=== PATIENT | male | born 1965 | race Two or more races ===

== ENCOUNTER 2024-09-07 09:41 | Emergency (ER) | payer MEDICAID ==
[~2024-09-07] VITALS: Ht 165.1 cm; Wt 73.0 kg
[2024-09-07 09:49] VITALS: O2SAT 99
[2024-09-07 09:51] VITALS: BP 141/7; PULSE 83; RESP 14; TEMP 36.7; O2SAT 99
[2024-09-07 10:24] LABS: BASOPHILS % 0.5 % (0.0-2.0); EOSINOPHILS % 2.2 % (0.0-5.0); HEMATOCRIT. 42.5 % (42.0-52.0); HEMOGLOBIN. 14.1 g/dL (14.0-18.0); LYMPHOCYTES % 23.1 % (20.0-50.0); MEAN CORPUSCULAR HEMOGLOBIN 29.4 pg (28.0-32.0); MEAN CORPUSCULAR HGB CONC 33.1 g/dL (31.0-37.0); MONOCYTES % 7.4 % (2.0-8.0); NEUTROPHILS % 66.8 % (40.0-76.0); PLATELET 200 x1000/uL (130-400); RED BLOOD CELL COUNT 4.78 mill/uL (4.7-6.1); RED CELL DISTRIBUTION WIDTH 13.3 % (11.6-14.6); WHITE BLOOD COUNT 7.2 x1000/uL (4.5-11.0)
[2024-09-07 10:31] LABS: PROTHROMBIN TIME 10.7 sec (9.6-11.0)
[2024-09-07 10:45] LABS: CHLORIDE 105 mEq/L (98-107); POTASSIUM 3.7 mEq/L (3.5-5.1); SODIUM 140 mEq/L (136-145)
[2024-09-07 10:46] LABS: CALCIUM 9.2 mg/dL (8.7-10.4); CARBON DIOXIDE 26 mEq/L (21-32)
[2024-09-07 10:50] LABS: ALANINE AMINOTRANSFERASE 27 IU/L (10-49); ASPARTATE AMINOTRANSFERASE 23 IU/L (<34)
[2024-09-07 10:51] LABS: ALBUMIN 4.5 g/dL (3.2-4.8); BILIRUBIN DIRECT 0.1 mg/dL (<=3.0); BILIRUBIN TOTAL 0.6 mg/dL (0.1-1.0); CREATININE 0.9 mg/dL (0.6-1.3); GLUCOSE 129 mg/dL (70-105); PHOSPHORUS 2.5 mg/dL (2.5-4.9); PROTEIN TOTAL 7.9 g/dL (6.0-8.3); UREA NITROGEN BLOOD 18 mg/dL (9-23)
[2024-09-07 10:54] LABS: T4 FREE 1.39 ng/dL (0.89-1.76)
[2024-09-07 10:55] LABS: THYROID STIMULATING HORMONE 2.06 uIU/mL (0.55-4.78)
[2024-09-07 10:58] LABS: TROPONIN I HIGH SENSITIVITY < 4 ng/L (3.0-53)
[2024-09-07 11:49] LABS: CLARITY URINE CLEAR (CLEAR); COLOR URINE YELLOW (YELLOW); GLUCOSE URINE NEGATIVE (NEGATIVE); KETONES URINE NEGATIVE (NEGATIVE); LEUKOCYTE ESTERASE URINE NEGATIVE (NEGATIVE); NITRITE URINE NEGATIVE (NEGATIVE); OCCULT BLOOD URINE NEGATIVE (NEGATIVE); PH URINE 6.5 (4.5-8.0); PROTEIN URINE NEGATIVE (NEGATIVE); SPECIFIC GRAVITY URINE 1.021 (1.005-1.030)
== END 2024-09-07 12:07 | disposition home or self-care (01) ==
LOC: ER 10:09
DX: R00.2 Palpitations (principal); E78.00 Pure hypercholesterolemia, unspecified; J45.909 Unspecified asthma, uncomplicated; R03.0 Elevated blood-pressure reading, without diagnosis of hypertension; R07.9 Chest pain, unspecified
CPT/HCPCS: 36415; 71045; 80048; 80076; 81003; 83735; 84100; 84439; 84443; 84484; 85025; 93005; 99285